=== PATIENT | male | born 1950 | race Caucasian/White ===

== ENCOUNTER 2024-03-04 19:13 | Observation (INO) | payer MEDICARE, SELFPAY ==
[2024-03-04] VITALS (7 sets, daily range): BP systolic 110–158; BP diastolic 52–89; BMI 25.1; BMI 24.5
--- NOTE | 2024-03-04 17:04 | EDRN ---
stroke alert called.
[2024-03-04 17:09] LABS: Glucose - Point of Care 87 mg/dl (70-99)
[2024-03-04 17:26] LABS: PT 13.7 Sec (11.4-14.6)
[2024-03-04 17:27] LABS: APTT 31.5 Sec (23.4-35.0)
[2024-03-04 17:28] LABS: % Basophils 0.3 % (0-2); % Eosinophils 1.3 % (0-6); % Immature Granulocytes 0.3 % (0-0.5); % Monocytes 7.1 % (1.7-9.3); Absolute Eosinophils 0.1 10^3/uL (0-0.7); Absolute Lymphocytes 1.4 10^3/uL (1.2-3.4); Absolute Monocytes 0.4 10^3/uL (0.1-0.6); Absolute Neutrophils 4.1 10^3/uL (1.4-6.5); Hematocrit 41.7 % (39.0-52.0); Hemoglobin 14.1 g/dL (13.0-18.0); Mean Corp Hgb Conc. 33.8 g/dL (33.0-37.0); Mean Corpuscular Hgb 32.5 pg (27.0-31.0); Mean Corpuscular Volume 96.1 fL (80.0-94.0); Mean Platelet Volume 10.7 fL (7.4-10.4); Nucleated Red Blood Cells % 0 % (-); Platelet Count 219 10^3/uL (130-400); Red Blood Cell Count 4.34 10^6/uL (4.70-6.10); Red Cell Dist. Width 12.7 % (11.5-14.5); White Blood Cell Count 6.1 10^3/uL (4.8-10.8)
--- NOTE | 2024-03-04 17:30 | ED.GENMED ---
History of Present Illness
General
Chief Complaint: Visual Problem
Source: patient
Time Seen by Provider: 03/04/24 16:48
History of Present Illness
History of Present Illness:
73-year-old male with past medical history of possible previous TIA presenting to the emergency department for evaluation after he noticed around 3 PM this afternoon when he would turn his head right word he would feel blurred/double vision out of
the left side of his eye, lightheaded/dizziness, and a odd sensation on the left side of his face. Patient states that since arriving to the ER here he is noticed that he has the feeling off balance and left-sided facial sensation even without
turning his head. He does note that some of the visual disturbances have been ongoing for about a week or so but waxes and wanes. He denies any headaches, focal weakness or numbness, speech difficulties, chest pain or shortness of breath, neck
pain or stiffness or any other concerns. Family history was negative for any CVA or brain mass. Social history was noted for drinking a couple of beers at least 5 times a week and patient also smokes around to half pack of cigarettes per day.
Past History
Past History
ED Past Medical History: Other ((?)Lyme ds in the past, Lyme titers drawn here 2008 were negative) and Other (History of premature beats)
ED Past Surgical History: Orthopedic (Left knee surgery) and Tonsilectomy
Social History
Tobacco: Smoker
Alcohol: Daily
Drug: None
Personal:
Living: with family
Employment: Employed
Family History
Family History: Negative Diabetes
Review of Systems
Review of Systems
All Other Systems: ROS reviewed and negative except as documented in HPI and ROS
Phy Exam
Physical Exam
Physical Exam:
GENERAL: Alert , in no apparent distress
EYE: pupils equal and reactive, pupils 4 mm bilateral, EOMI, no nystagmus. Slightly decreased peripheral vision on the left compared to the right
NECK: Supple, no significant adenopathy.
ENT: o/p clr, mmm.
CARDIAC: Regular rate and rhythm, no murmur.
LUNGS: Clear breath sounds bilaterally, no acute respiratory distress, no wheezes/rales/rhonchi
ABDOMEN: Soft, without focal tenderness, no r/g, no cvat
NEUROLOGICAL: Alert and oriented x 3, no ataxia while ambulating but patient does have dysmetria on the left when performing [id number] stating that the tip of my finger looks double to him. He moves all extremities without any difficulty.
Sensation grossly intact to light touch. No facial drooping, no dysarthria or aphasia
SKIN: Warm and dry, skin intact.
MUSCULOSKELETAL: No edema, well perfused.
PSYCH: Normal and appropriate interaction.
Scores
NIH Stroke Score
Level of Consciousness: 0 - Alert
LOC Questions: 0-Answers both correctly
LOC Commands: 0-Performs both correctly
Best Horizontal Gaze: 0-Normal
Visual Recinos: 1=Partial hemianopia
Facial Palsy: 0=Normal, symmetrical
Motor - Right Arm: 0=No drift 10 seconds
Motor - Left Arm: 0=No drift 10 seconds
Motor - Right Le-No drift 5 seconds
Motor - Left Le-No drift 5 seconds
Limb Ataxia: 0-Absent
Sensation: 0-Normal
Best Language: 0-No aphasia
Dysarthria: 0-Normal
Extinction and Inattention: 0-No abnormality
Total Score:: 1
Heart Failure Risk
Heart Failure Risk Score: Not Applicable
Heart Score for Chest Pain Patients
STEMI patient?: Not applicable
Withdrawal Assessment of Alcohol
Withdrawal Assessment Completed?: Not applicable
Course
Orders/Labs/Results
Orders:
Orders
03/04/24 17:04
CT HEAD STROKE ALERT W/o Cont Urgent
Comment:
Reason For Exam: left sided dysmetria, vision changes
CT HEAD/NECK ANG STROKE ALERT Urgent
Comment:
Reason For Exam: left sided dysmetria, vision changes
03/04/24 17:05
Electrocardiogram (*1) Stat
Reason for Study: Other
Other Reason for Exam: neuro symptoms
EKG- Treatment ONCE
03/04/24 17:08
Alcohol Urgent
Complete Blood Count/With Diff Urgent
Comprehensive Metabolic Panel Urgent
Erythrocyte Sed Rate Urgent
PTT Urgent
Prothrombin Time Urgent
Troponin I Urgent
03/04/24 17:17
Add On- LAB Stat
Tests Added?: alcohol
03/04/24 17:24
Lipid Profile [Cardiovascular Evaluation] Urgent
03/04/24 17:30
Aspirin 325 mg PO NOW STA
Atorvastatin [Lipitor] 80 mg PO NOW STA
Clopidogrel Bisulfate [Plavix] 300 mg PO NOW STA
Abnormal Lab Results
03/04/24
17:08
RBC 4.34 L 10^6/uL
(4.70-6.10)
MCV 96.1 H fL
(80.0-94.0)
MCH 32.5 H pg
(27.0-31.0)
MPV 10.7 H fL
(7.4-10.4)
03/04/24 17:08
03/04/24 17:08
Vital Signs
Initial and Last Documented VS:
Initial Vital Signs
Temp Pulse Resp BP Pulse Ox
98.4 F 93 16 141/89 98
03/04/24 16:15 03/04/24 16:15 03/04/24 16:15 03/04/24 16:15 03/04/24 16:15
Last Documented Vital Signs
Temp Pulse Resp BP Pulse Ox
98.4 F 82 21 147/80 97
03/04/24 16:15 03/04/24 17:30 03/04/24 17:30 03/04/24 17:24 03/04/24 17:30
MDM/Problems Addressed
Differential Diagnosis Includes:
CVA/TIA, dissection, mass/malignancy, less concern for seizure, giant cell arteritis
MDM/Problems Addressed:
73-year-old male presenting to the ER for evaluation of left eye visual disturbance, feeling off balance. Some visual disturbance have been ongoing for about a few weeks but today seem to be acutely worse with other symptoms prompting him to come
to the ER. On exam here he does have dysmetria on the left and a very slight peripheral vision field cut compared to the right. Stroke alert was called. CT of the head and CTA of the head and neck were ordered. Will discuss with neurology.
Anticipate admission
*Radiology
Radiology exam reviewed: radiology read reviewed
*Pulse Oximetry
Patient hypoxic: no
*EKG
Interpreted by ED Provider?: Yes
Heart Rate: 78
Rate: normal
Rhythm: sinus
[place]: normal axis
Ischemia: no ischemia
*Body Presser Interpretation
Rate: normal
Rhythm: sinus
*Critical Care Note
Total Time (30-74mins, 75-104mins- exclusive of procedures): Not Applicable
Data Reviewed
Review of Other/Old Records Reveals: Labs and Records
Patient Management
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
Escalation/DeEscalation of care consider admission/obs:
Case discussed with neurology who reviewed patient's imaging. No acute abnormalities found. Will treat with 325 mg of aspirin, 300 mg of Plavix and 80 mg of Lipitor. Neurology requesting patient be admitted for further evaluation with further
imaging and workup. Hospitalist team aware and accepts for continued evaluation and treatment.
ED Attending Note
-
Portions of this chart may have been created with voice recognition software.� Occasional wrong word or��sound alike� substitutions may have occurred due to the inherent limitations of voice recognition software.
Discharge Plan
Departure
Patient Disposition: Admit
Date of Disposition: 03/04/24
Time of Disposition: 17:36
Presentation/result/management discussed w/ accepting MD/DO: Hospitalist
Discharge Problem:
Visual disturbance, Dysmetria
Prescriptions:
No Action
No Current Medications
0
Interventions
Interventions:
*Risk Screen - Suicide Last Done: 03/04/24 16:15
*General Assessment Last Done: 03/04/24 16:54
*Neglect/Abuse Screening Last Done: 03/04/24 16:15
ED- Fall Risk Assessment Last Done: 03/04/24 17:27
ED- Neurological Assessment Last Done: 03/04/24 17:27
ED-EENT Assessment Last Done: 03/04/24 17:27
ED Swallowing Screen Last Done: 03/04/24 17:27
Discharge Date and Time
Print Language: BELARUSIAN
[2024-03-04 17:32] LABS: ALT (SGPT) 32 U/L (0-50); AST (SGOT) 30 U/L (17-59); Albumin 4.8 g/dl (3.5-5.0); Alcohol 20 mg/dl; Alkaline Phosphatase 52 U/L (38-126); Blood Urea Nitrogen 13 mg/dl (9-20); Calcium 9.7 mg/dl (8.4-10.2); Carbon Dioxide 23 mmol/L (22-30); Chloride 103 mmol/L (98-107); Estimated Creatinine Clearance 86 ml/min; Glucose 89 mg/dl (70-99); Potassium 4.4 mmol/L (3.5-5.1); Sodium 138 mmol/L (135-145); Total Bilirubin 0.9 mg/dl (0.2-1.3); Total Protein 7.4 g/dl (6.3-8.2); eGFR > 60.00
[2024-03-04] MEDS: PLAVIX 300 MG PO (17:37)
[2024-03-04] MEDS: LIPITOR 80 MG PO (17:37)
[2024-03-04] MEDS: ASPIRIN 325 MG PO (17:37)
[2024-03-04 17:45] LABS: Troponin I < 0.012 ng/ml
[2024-03-04 17:54] LABS: Erythrocyte Sed Rate 8 mm/hour (0-20)
[2024-03-04 18:26] LABS: HDL Cholesterol 75 mg/dl; LDL Cholesterol, Calculated 78 mg/dl; Total Cholesterol 163 mg/dl (50-199); Triglyceride 54 mg/dl (10-149); Very Low Density Lipoprotein 10 mg/dl (0-30)
--- NOTE | 2024-03-04 18:58 | HPS.HSE ---
Addendum entered and electronically signed by Vega Demarco MD 03/05/24 08:30:
73 male smoker presents with visual disturbances that began this morning that are described as opaque dots and lines in his left visual field. States that when he tilts his head to the right he feels a little dizzy but this has been going on for
sometime. States he checked his blood pressure this a.m. with a SBP of 120. No history of high blood pressure though pressure while in the ER in the 150s. I reviewed documentation from the ER for which was documented as when he would turn his
head to the rightward he would feel blurred/double vision out of the left side of his eye, lightheadedness/dizziness odd sensation of the left side of face. CT without contrast without acute findings. CTA head and neck without acute findings, no
dissection. EKG normal sinus rhythm
Physical Exam
NAD, resting comfortably in bed
Scleral anicteric
Moist mucous membranes
No JVD
CTA bilateral
Normal S1-S2 no murmurs
Soft nontender nondistended bowel sounds active
No peripheral pitting edema
Moves extremities spontaneously
AAOx3
Assessment and Plan
CVA rule out vs visual disturbance
-MRI brain
-Neurology
-Likely will need outpatient opthalmology follow up
--Without findings of emergency symptoms (no bleeding from the eyes, monooccular vision loss, red eyes, tearing
-Lipid profile
-A1c
-Telemetry
Hypertension
-New
-Will monitor
-If still high start CCB
Original Note:
Family Physician
-
Family Physician: CARROL EMANUEL MD
Chief Complaint
-
Left eye vision disturbance
History of Present Illness
73 y/o male presented to ED with changed in vision in the L eye. Today around 3pm, the patient tilted (not turned) his head to the right and started to see double vision/flecks/ground glass 'bebee balls' in his eyes. He also felt some sided numbness
and tingling in his face. It went away after 15 minutes. Afterwards he went inside and took his BP and noted the systolic to be in the 150s. After this he decided to come into the ED. Of note, over the past few weeks he has noticed abnormal flecks
in his left eye that came and went. He denied any headaches, focal weakness, numbness and tingling elsewhere in his body, speech difficulties, chest pain, shortness of breath, neck pain or stiffness, nausea vomiting diarrhea, recent sickness.
Upon arrival to ED, blood pressure 141/89. Noncontrast Head CT showed no signs of hemorrhage. Head/neck CTA was unremarkable. Patient given loading dose of aspirin and clopidogrel. Also given a statin.
Medical History
Past Medical History
Past Medical History: Reports None
Past Surgical History: Reports Tonsilectomy and Other (Arthroscopy, sinus surgery)
Social History
Tobacco: Smoker (8-10 cigarettes for past 3-4 years, and between ages [age])
Alcohol: Daily (4-6 beers a day )
Drug: None
Personal:
Living: With Family
Family History
Family History: Not pertinent
Allergies / Home Medications
Allergies reflects when Allergies were last updated in [employer].
Home Medications with original date entered in [employer]
Allergy/Medication List:
Allergies
Allergy/AdvReac Type Severity Reaction Status Date / Time
No Known Allergies Allergy Verified 03/04/24 16:18
Home Medications
No Meds [No Current Medications] 03/04/24
Review of Systems
-
History Source: Patient
A 12 point ROS was completed and negative except as noted: Yes
Constitutional: Reports No Symptoms
EENT: Reports No Symptoms
Respiratory: Reports No Symptoms
Cardiac: Reports No Symptoms
Abdomen/GI: Reports No Symptoms
: Reports No Symptoms
Skin: Reports No Symptoms
Neurological: Reports No Symptoms
Psych: Reports Anxiety
Physical Exam
Vital Signs
Vital Signs
Temp Pulse Resp BP Pulse Ox
98.4 F 77 18 147/80 97
03/04/24 16:15 03/04/24 17:45 03/04/24 18:16 03/04/24 17:24 03/04/24 17:45
Physical Exam
General: No Apparent Distress and Conversant
HEENT: NormoCephalic and PERRLA
Respiratory: Clear
Cardiac: S1/S2 and Regular Rhythm
GI: Soft, Non Tender, Non Distended and Normal Bowel Sounds
Genito-urinary: Deferred by me
Musculoskeletal: No Cyanosis and No Edema
Skin: Warm
Neuro: AO x 3, No Motor Deficits, Nonfocal/grossly intact, Cranial Nerves Intact, No Sensory Deficits and DTR's Intact & Symmetrical; No Slurred Speech, Facial Droop or Tremors
Psych: Calm
Laboratory Results
-
03/04/24 17:08
03/04/24 17:08
Laboratory Results
PT 13.7 Sec (11.4-14.6) 03/04/24 17:08
INR 1.00 03/04/24 17:08
APTT 31.5 Sec (23.4-35.0) 03/04/24 17:08
Total Bilirubin 0.9 mg/dl (0.2-1.3) 03/04/24 17:08
AST 30 U/L (17-59) 03/04/24 17:08
ALT 32 U/L (0-50) 03/04/24 17:08
Alkaline Phosphatase 52 U/L (38-126) 03/04/24 17:08
Troponin I < 0.012 ng/ml 03/04/24 17:08
Impression/Plan
-
IMPRESSION:
73-year-old male presenting with TIA
PLAN:
TIA
� Noncontrast head CT, head CT unremarkable
- No history of A-fib, EKG normal sinus rhythm
� MRI in a.m.
� Neurology consulted
� Clopidogrel, aspirin, statin
� Neurochecks
� Hemoglobin A1c
� Telemetry
- PT/OT
Alcohol use disorder
� 4-6 beers a day
� Monitor for withdrawal
Tobacco abuse
� 6-10 cigarettes a day
� Nicotine patch
Regular diet
DVT enoxaparin
Full code
--- NOTE | 2024-03-04 20:29 | PTCARENOTE ---
Pt arrived onto floor @2028. Pt AAOx3 and able to walk into room without assistance. Pt with no complaints of pain or SOB at this time. Pt oriented to room and call fang; will continue to monitor
[2024-03-04 22:54] LABS: ALT (SGPT) 30 U/L (0-50); AST (SGOT) 26 U/L (17-59); Albumin 4.2 g/dl (3.5-5.0); Alkaline Phosphatase 49 U/L (38-126); Blood Urea Nitrogen 12 mg/dl (9-20); Calcium 9.7 mg/dl (8.4-10.2); Carbon Dioxide 24 mmol/L (22-30); Chloride 104 mmol/L (98-107); Estimated Creatinine Clearance 97 ml/min; Glucose 100 mg/dl (70-99); Potassium 4.3 mmol/L (3.5-5.1); Sodium 138 mmol/L (135-145); Total Bilirubin 1.1 mg/dl (0.2-1.3); Total Protein 6.6 g/dl (6.3-8.2); eGFR > 60.00
[2024-03-05 03:25] VITALS: BP 117/69
[2024-03-05 06:35] LABS: Hematocrit 40.2 % (39.0-52.0); Hemoglobin 13.7 g/dL (13.0-18.0); Mean Corp Hgb Conc. 34.1 g/dL (33.0-37.0); Mean Corpuscular Hgb 33.2 pg (27.0-31.0); Mean Corpuscular Volume 97.3 fL (80.0-94.0); Mean Platelet Volume 10.9 fL (7.4-10.4); Platelet Count 206 10^3/uL (130-400); Red Blood Cell Count 4.13 10^6/uL (4.70-6.10); Red Cell Dist. Width 12.8 % (11.5-14.5)
[2024-03-05 06:59] LABS: HDL Cholesterol 55 mg/dl; LDL Cholesterol, Calculated 84 mg/dl; Total Cholesterol 153 mg/dl (50-199); Triglyceride 73 mg/dl (10-149); Very Low Density Lipoprotein 14 mg/dl (0-30)
[2024-03-05 07:33] VITALS: BP 130/72
[2024-03-05] MEDS: PLAVIX 75 MG PO (08:40)
[2024-03-05] MEDS: LOW STRENGTH ASPIRIN 81 MG PO (08:40)
--- NOTE | 2024-03-05 08:52 | CON.NEURO4 ---
Documented by User: Alyce Rangel NP 03/05/24 10:15
Consultation - Neurology 4
-
CONSULTING PHYSICIAN: Les Jones MD
REFERRING PHYSICIAN: Hospitalists/Sandi Guerrero MD Resident
DICTATED BY: SHITAL Oliveira
DATE/TIME OF REQUEST: 03/04/24
DATE/TIME OF CONSULTATION: 03/05/24
Reason for Consultation: Vision change
History of Present Illness:
This is a 73-year-old right-handed male who has presented to the hospital on 03/04/24 with report of a visual disturbance and high blood pressure. Patient reports that yesterday (03/04/24) around 1500 he was tilting his head to the right when his
left eye lateral vision became distorted, which he describes as double vision with objects vertically stacked. He also notes having a slight tingling in his left face and feeling light-headed. The visual disturbance resolved after 15 minutes but he
still felt 'off' and unsteady on his feet. He checked his blood pressure and notes it was elevated, prompting him to come to the ER for evaluation. CT head and CTA head/neck were obtained on arrival in the ER and are negative for any acute findings.
BP on arrival was 141/89. NIHSS was 1 for a slight RUQ field cut in the left eye only. He was not a candidate for TNK/IAT due to low NIHSS, unclear diagnosis. He was not taking any blood thinning medications and he was loaded with aspirin and Plavix
in the ER.
He notes having a similar episodes of diplopia about three weeks prior to this episode. He also has been evaluated here in 2016 for a visual disturbance in bilateral eyes lasting 30 minutes. He had an MRI brain on 08/10/15 following this event that
was negative for any acute findings.
Patient reports that today he is feeling at his baseline. He denies any headache, neck pain, speech/swallow difficulty, numbness, weakness, chest pain, palpitations, and shortness of breath. On Neurology's evaluation he has has a left eye mild
ptosis. 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 Since then, he reports that his left eyelid has looked droopy in
comparison. He denies any history of significant headaches.
Past Medical History: Lyme disease, PVCs
Surgical History: R eyelid lift in the 70's, tonsillectomy, left knee arthroscopy, sinus surgery
Family History: Mother- Alzheimer's disease.
Social History: Drinks 4-6 beers/day. Smokes 8-10 cigarettes/day for the past 4 years and distant smoking from age [age]. Denies illicit drug use.
Allergies: No known allergies.
Home Medications: See below.
Review of Symptoms:
Patient denies any fever, headache, chest pain, shortness of breath, GI or symptoms.
�Per the HPI.�All systems are reviewed negative except above.
Physical Exam:
The patient is afebrile, abdomen is nondistended, breathing is unlabored, skin is warm and dry, no edema.
NIH Stroke Scale:
I performed the NIH stroke scale on the patient on 03/05/24 at 0900. The patient scored 1 points on the NIH stroke scale assessment, which were assigned as follows: See below.
Neurologic Examination:
The patient is awake, alert and oriented x 3. He is able to follow commands and answer questions appropriately. There is no aphasia or dysarthria. On cranial nerve assessment, pupils are 3 mm bilateral, round and reactive to light and
accommodation. There is a left eye ptosis. Visual recinos are full. Extraocular movements are intact. Facial sensations are intact and bilaterally symmetrical, there is no facial asymmetry. Hearing is intact bilaterally to normal conversation
volume. Tongue palate and uvula are midline. Sternocleidomastoid strengths are full bilaterally. Motor strengths are 5/5 bilateral upper and lower extremities on medical research [place] scale. There is no drift or involuntary movement noted. Deep
tendon reflexes are 2+ bilateral upper and lower extremities and Babinski is absent bilaterally. There was no extinction noted on double simultaneous stimulation. Coordination is intact by finger to nose bilaterally.
Lab Results: See below.
Neuro Imaging:
1. CT Head 03/04/24: No acute intracranial abnormality. ASPECT score: 10.
2. CTA Head/Neck 03/04/24: Unremarkable CTA of the Neck and Head. No findings to suggest internal carotid artery or vertebral artery dissection bilaterally. Codominant vertebral arteries.
Differentials for the patient's presentation include:
1. Small ischemic infarct possibly producing visual disturbance.
2. Need to rule out myasthenia gravis producing eyelid drooping.
3. Migraine aura possibly producing symptoms.
4. Hypertensive urgency possibly producing visual change and disequilibrium.
Patient has the following risk factors for their symptoms: Similar episode previously, HTN, smoker, eyelid drooping
IV Tenecteplase/IAT candidacy: He was not a candidate for TNK/IAT due to low NIHSS, unclear diagnosis.
Recommendations:
-Okay to continue DAPT with aspirin 81mg and Plavix 75mg daily for now. If MRI brain is negative, would discontinue DAPT.
-MRI brain noncontrast pending.
-Goal normotension.
-Myasthenia antibody panel pending.
-NIHSS and neurological checks per unit guidelines.
-Provide patient with a stroke education packet.
-Smoking cessation counseling.
-MSAS protocol.
-If MRI demonstrates a stroke, LDL goal will be <70. LDL is 84.
-Goal normoglycemia, hbA1c is 5.3.
-PT/OT evaluations.
-DVT prophylaxis.
-Will follow pending results.
Discussed patient care with: Dr. Jones, the patient
Vital Signs and Labs
-
Vital Signs and Labs:
Vital Signs
Temp Pulse Resp BP Pulse Ox
98.3 F 59 18 130/72 95
03/05/24 07:33 03/05/24 07:33 03/05/24 07:33 03/05/24 07:33 03/05/24 07:33
Lab Results
03/05/24 05:57
03/04/24 22:04
PT 13.7 Sec (11.4-14.6) 03/04/24 17:08
INR 1.00 03/04/24 17:08
APTT 31.5 Sec (23.4-35.0) 03/04/24 17:08
Sodium 138 mmol/L (135-145) 03/04/24 22:04
Potassium 4.3 mmol/L (3.5-5.1) 03/04/24 22:04
BUN 12 mg/dl (9-20) 03/04/24 22:04
Glucose 100 mg/dl (70-99) H 03/04/24 22:04
Calcium 9.7 mg/dl (8.4-10.2) 03/04/24 22:04
LDL Cholesterol, Calc 84 mg/dl 03/05/24 05:57
Medications
-
Active Medications
Generic Name Dose Route Start Last Admin
Trade Name Freq PRN Reason Stop Dose Admin
Acetaminophen 650 mg 03/04/24 20:19
Acetaminophen 650 Mg Rectal Suppository RECTAL 04/01/24 20:18
Q4HPRN PRN
FRANCOIS, mild pain, or temp >100.4F
Acetaminophen 650 mg 03/04/24 20:19
Acetaminophen 325 Mg Tablet PO 04/01/24 20:18
Q4HPRN PRN
FRANCOIS, mild pain, or temp >100.4F
Aspirin 81 mg 03/05/24 08:00 03/05/24 08:40
Aspirin 81 Mg Chewable Tablet PO 04/02/24 07:59 81 mg
DAILY VICENTE Administration
Atorvastatin Calcium 80 mg 03/05/24 18:00
Atorvastatin (Lipitor) 80 Mg Tablet PO 04/02/24 17:59
QPM VICENTE
Clopidogrel Bisulfate 75 mg 03/05/24 08:00 03/05/24 08:40
Clopidogrel 75 Mg Tablet PO 04/02/24 07:59 75 mg
DAILY VICENTE Administration
Enoxaparin Sodium 40 mg 03/04/24 20:19 03/04/24 21:36
Enoxaparin Sodium 40 Mg/0.4 Ml Syringe SC 04/01/24 20:18 Not Given
QPM VICENTE
Nicotine 14 mg 03/05/24 08:00 03/05/24 08:40
Nicotine 14 Mg Patch TRANSDERM 04/02/24 07:59 Not Given
DAILY VICENTE
Home Medications
�Medication �Instructions �Recorded
No Meds [No Current Medications] 03/04/24
NIH Stroke Score
Subsequent NIH Scale
Date of Subsequent NIH Scale: 03/05/24
Time of Subsequent NIH Scale: 09:00
NIH Stroke Score
Level of Consciousness: 0 - Alert
LOC Questions: 0-Answers both correctly
LOC Commands: 0-Performs both correctly
Best Horizontal Gaze: 0-Normal
Visual Recinos: 0=Normal, no visual loss
Facial Palsy: 1=Minor paralysis
Motor - Right Arm: 0=No drift 10 seconds
Motor - Left Arm: 0=No drift 10 seconds
Motor - Right Le-No drift 5 seconds
Motor - Left Le-No drift 5 seconds
Limb Ataxia: 0-Absent
Sensation: 0-Normal
Best Language: 0-No aphasia
Dysarthria: 0-Normal
Extinction and Inattention: 0-No abnormality
Total Score:: 1
Modified [place] (mRS) Score
Modified [place] Scale (mRS): No significant disability. Able to carry out usual activities.
Score: 1

Documented by User: Les Jones MD 03/05/24 14:54
NIH Stroke Score
NIH Stroke Score
Total Score:: 1
Modified [place] (mRS) Score
Score: 1
[2024-03-05 09:27] LABS: TSH Reflex To Free T4 1.53 uIU/ml (0.47-4.68)
[2024-03-05 09:29] LABS: Glycohemoglobin (HgbA1c) 5.3 % (4.0-5.6)
[2024-03-05 09:30] VITALS: BP 145/74; BP 153/89; PULSE 74
[2024-03-05 09:32] VITALS: BP 145/74; BP 153/89; PULSE 74
[2024-03-05 10:02] LABS: Folate > 20.0 ng/ml (2.76-20); Vitamin B12 386 pg/ml (239-931)
--- NOTE | 2024-03-05 10:48 | W.PN.HOSP.TC ---
Addendum entered and electronically signed by Vega Demarco MD 03/05/24 12:10:
discussed case with neuro after mri negative for cva
-dc dapt
-outpt neuro and opthalmology follow up
Original Note:
Today's Communication/Plan
-
Discharge pending MRI
Follow-up with outpatient ophthalmology
Assessment / Plan
Assessment / Plan
TIA
� Noncontrast head CT, head CT unremarkable
- No history of A-fib, EKG normal sinus rhythm
� MRI pending
� Clopidogrel, aspirin, statin
� Neurochecks
� Hemoglobin A1c 5.3
- Lipid profile LDL 84 goal <70
- ASCVDs score 18.2% discharge with high intensity statin
- Left eye lid drooping noted per neurology, pt stated has been like that since the s
- Myesthenia antibody panel per neurology pending
� Telemetry
- PT/OT
Hypertension
- New
- Borderline elevated
- f/u in outpatient
Alcohol use disorder
� 4-6 beers a day
� Monitor for withdrawal
Tobacco abuse
� 6-10 cigarettes a day
� Nicotine patch
- Smoking cessation counseling
Regular diet
DVT enoxaparin
Full code
Anticipated Discharge: Within 24 hours
Subjective/Interval History
-
Date of Service: March 05, 2024
Objective Data
-
Labs:
Laboratory Results
03/04/24 03/05/24
22:04 05:57
WBC 5.0
Hgb 13.7
Hct 40.2
Plt Count 206
Sodium 138
Potassium 4.3
Chloride 104
Carbon Dioxide 24
BUN 12
Creatinine 0.8
Glucose 100 H
Calcium 9.7
Total Bilirubin 1.1
AST 26
ALT 30
Alkaline Phosphatase 49
Vital Signs:
Vital Signs
Temp Pulse Resp BP Pulse Ox
98.3 F 59 18 130/72 95
03/05/24 07:33 03/05/24 07:33 03/05/24 07:33 03/05/24 07:33 03/05/24 07:33
I&O
03/04/24 03/05/24 03/06/24
06:59 06:59 06:59
Intake Total 220 / 220
Balance 220 / 220
Review of Systems
-
History Source: Patient
EENT: Reports Other (Feeling of fullness behind the left eye); Denies Blurry Vision, Eye Pain or Dry Eyes
Respiratory: Reports No Symptoms
Cardiac: Reports No Symptoms
Abdomen/GI: Reports No Symptoms
Genitourinary: Reports No Symptoms
Neuro: Reports No Symptoms
Physical Exam
-
General: Well Developed and Comfortable
HEENT: Normocephalic and PERRLA
Respiratory: Clear to Auscultation
Cardiac: Regular Rhythm and S1/S2
GI: Soft, Nontender, Nondistended and Normal Bowel Sounds
Musculoskeletal: No Edema
Skin: Warm
Neuro: AO x 3, No Motor Deficits, Nonfocal/Grossly Intact, Central Nerve's Intact and No Sensory Deficits; Negative Slurred Speech or Facial Droop
Psych: Calm
[2024-03-05 11:25] VITALS: BP 133/66
--- NOTE | 2024-03-05 14:44 | CM ---
Pt seen bedside. Pt lives alone in single story home- 2 steps to enter home
Independent, no DME for daily functioning
Denies SNF hx
Denies VN/PT in the past
Address, point of contact and insurance verified
PCP: Dr. Marge Conte
Pharmacy: [facility]
SNOW reviewed, pt given copy. Copy placed in chart.
Pt d/c today.
IMM reviewed, pt given copy. Copy placed in chart.
Per pt he will drive himself at d/c.
Plan: Home no needs
--- NOTE | 2024-03-05 15:28 | W.DCSUMMARY ---
Discharge Summary
Discharge Data
Date of Admission: 03/04/24
Date of Discharge: 03/05/24
-
Pending Results: Yes
Additional Pending Results:
AChR antibody
Hospital Course
Primary Diagnosis:
Occular Migraine
Hypertension
73 y/o male presented to the ED with abnormal visual changes in his left eye and abnormal feeling in his left face. Stroke work up was started in ED. BP was 141/89. He had no other FND. Non-contrast head CT and head/neck CTA showed no acute
findings. He was started on DAPT in ED and a statin. Neurology consulted and MRI planned for the AM. MRI revealed no acute findings. Neurology worked him up for myasthenia gravis due to slight left eyelid drooping. Pt stated he has had left eye lid
drooping since the 1970's. AChR antibody pending. Likely ocular migraine per neurology. Recommend ophthalmology follow up and well.
Today, patient is clinically stable for discharge without the need for DAPT therapy. We did discharge on high intensity stating due to ASCVD score 21%. Also recommended patient to start blood pressure log over next 2 weeks and follow-up of blood
pressure with PCP.
Discharge Plan
-
Patient Disposition: Home (Routine Discharge)
Discharge Diagnosis/Procedures: Ocular migraine
Condition: Good
Diet: As tolerated
Activity: As tolerated
Driving Restrictions: As prior to admission
Bathing Restrictions: None
Referrals:
CARROL EMANUEL MD [Family Provider] - in less than 1 week
Additional Discharge Medication Instructions: Dr. Devang Demarco, [facility] Mar 08, 8:30am for ophthalmology follow up.
Follow up with family doctor for blood pressure medication recommendations.
Create a blood pressure log and record your blood pressure twice a day over the next two weeks. This will help your primary care doctor figure out whether you need blood pressure medication.
Prescriptions:
New
atorvastatin 80 mg Tablet
80 mg PO QPM 30 Days Qty: 30 0RF
Discharge Orders:
Discharge Patient (As Directed); Ordered 03/05/24
Ordered By: Sandi Guerrero
Discharge Date and Time
Discharge Date/Time: 03/05/24 13:43
Print Language: MALTESE
== END 2024-03-05 13:43 | disposition home or self-care (01) ==
LOC: 4 WEST ACU 19:13
PROVIDERS: Physician Assistant Medical; ADMITTING PHYSICIAN Hospitalist; CONSULT PHYSICIAN Psychiatry & Neurology Neurology; EMERGENCY PHYSICIAN Emergency Medicine; FAMILY PHYSICIAN Student in an Organized Health Care Education/Training Program
DX: G43.109 Migraine with aura, not intractable, without status migrainosus (principal); H53.2 Diplopia; F17.210 Nicotine dependence, cigarettes, uncomplicated; F10.10 Alcohol abuse, uncomplicated; I10 Essential (primary) hypertension; M50.01 Cervical disc disorder with myelopathy, high cervical region; M48.02 Spinal stenosis, cervical region; H02.402 Unspecified ptosis of left eyelid; I67.81 Acute cerebrovascular insufficiency; J01.30 Acute sphenoidal sinusitis, unspecified; R27.8 Other lack of coordination; R29.818 Other symptoms and signs involving the nervous system; H53.8 Other visual disturbances; Z86.73 Personal history of transient ischemic attack (TIA), and cerebral infarction without residual deficits; Z60.2 Problems related to living alone
CPT/HCPCS: 70450; 70496; 70498; 70551; 80053; 80061; 82077; 82607; 82728; 82746; 82962; 83036; 84443; 84484; 85025; 85027; 85610; 85652; 85730; 93005; 97162; 97166; 99285; G0378; Q9967